=== PATIENT | female | born 1995 | race Caucasian/White ===

== ENCOUNTER → 2019-02-11 | Outpatient (CLI) | payer BC ==
--- NOTE | 2019-02-11 12:11 | Diagnostic Imaging Report ---
INDICATION: Right breast nodule. FINDINGS: Sonographic interrogation of the area of nodule in the upper right breast was performed. No solid or cystic mass is seen. No sonographic abnormality is identified. IMPRESSION: No sonographic abnormality is detected. Close clinical and self breast exams are recommended to confirm stability of the area of palpable abnormality. ACR BI-RADS Category 1: Negative. Dictated by: Dictated on workstation # [id number]
== END ==
LOC: RAD 10:51
PROVIDERS: ATTEND Physician Assistant
DX: N63.10 Unspecified lump in the right breast, unspecified quadrant (principal)